=== PATIENT | female | born 1990 | race Two or more races ===

== ENCOUNTER 2017-04-13 18:21 | Emergency (ER) | payer MEDICAID ==
[~2017-04-13] VITALS: Ht 157.5 cm; Wt 46.7 kg
[~2017-04-13 18:21] MED LIST: ACET-1079; TRAM300T15
[2017-04-13 19:38] VITALS: BP 124/76
[2017-04-13] MEDS ORDERED: SODIUM CHLORIDE 0.9% 1,000 ML IV ONE (20:15)
[2017-04-13 20:54] LABS: Basophils # (auto) 0 uL; Basophils % (auto) 0.2 % (0.0-2.0); CONDITION Y; Eosinophils # (auto) 0.1 uL; Eosinophils % (auto) 1.2 % (0.0-7.0); Hematocrit 38.7 % (36.0-46.0); Hemoglobin 13.4 g/dL (12.2-16.2); Lymphocytes # (auto) 2.5 uL; Lymphocytes % (auto) 26.6 % (10.0-50.0); Mean Corpuscular Hemoglobin 31.5 pg (28.0-32.0); Mean Corpuscular Hgb Conc. 34.5 g/dL (32.0-36.0); Mean Corpuscular Volume 91.4 fL (80.0-100.0); Mean Platelet Volume 7.4 fL (7.4-10.4); Monocytes # (auto) 0.5 uL; Monocytes % (auto) 5.2 % (0.0-12.0); Neutrophils # (auto) 6.2 uL; Neutrophils % (auto) 66.8 % (37.0-80.0); Platelet Count (auto) 344 10^3/uL (140-450); Red Cell Distribution Width 13.1 % (11.6-16.0); White Blood Cell 9.3 10^3/uL (4.4-10.8)
[2017-04-13 21:05] LABS: Albumin 3.9 g/dL (3.4-5.0); BUN/Creatinine Ratio 14.5; Bilirubin, Total 0.6 mg/dL (0.2-1.0); Calcium 8.8 mg/dL (8.5-10.1); Potassium 3.2 mmol/L (3.5-5.1)
== END 2017-04-13 22:05 | disposition home or self-care (01) ==
LOC: ER 18:24
DX: O23.41 Unspecified infection of urinary tract in pregnancy, first trimester (principal); O99.281 Endocrine, nutritional and metabolic diseases complicating pregnancy, first trimester; E86.0 Dehydration; Z88.6 Allergy status to analgesic agent; Z88.8 Allergy status to other drugs, medicaments and biological substances; Z3A.00 Weeks of gestation of pregnancy not specified
CPT/HCPCS: 36415; 80053; 81025; 84702; 85025; 96360; 99284; J7030

== ENCOUNTER 2017-07-14 19:54 | Emergency (ER) | payer MEDICAID ==
[~2017-07-14] VITALS: Ht 157.5 cm; Wt 61.2 kg
[2017-07-14 20:47] LABS: Basophils # (auto) 0 uL; Basophils % (auto) 0.3 % (0.0-2.0); Eosinophils # (auto) 0.2 uL; Hematocrit 38.5 % (36.0-46.0); Lymphocytes # (auto) 2.6 uL; Lymphocytes % (auto) 28.4 % (10.0-50.0); Mean Corpuscular Hemoglobin 31.5 pg (28.0-32.0); Mean Corpuscular Hgb Conc. 33.8 g/dL (32.0-36.0); Mean Corpuscular Volume 92.9 fL (80.0-100.0); Monocytes # (auto) 0.6 uL; Monocytes % (auto) 6.4 % (0.0-12.0); Neutrophils # (auto) 5.7 uL; Neutrophils % (auto) 62.9 % (37.0-80.0); Platelet Count (auto) 292 10^3/uL (140-450); Red Blood Cells 4.15 10^6/uL (4.0-5.20); Red Cell Distribution Width 13.2 % (11.8-14.3); White Blood Cell 9.1 10^3/uL (4.4-10.8)
[2017-07-14 21:03] LABS: Potassium 3.8 mmol/L (3.5-5.1)
[2017-07-14 21:08] LABS: Albumin 3.6 g/dL (3.4-5.0); BUN/Creatinine Ratio 19.4; Calcium 8.5 mg/dL (8.5-10.1)
[2017-07-14 21:10] LABS: Bilirubin, Total 0.4 mg/dL (0.2-1.0); Total Protein 7.1 g/dL (6.4-8.2)
[2017-07-14 21:13] LABS: Urine Bacteria FEW /hpf (None Seen); Urine Blood Negative /uL (Negative); Urine WBC 1 /hpf (0 - 5)
[2017-07-14] MEDS ORDERED: cefTRIAXone SOD 1,000 MG VL IM ONE (22:45)
[2017-07-14] MEDS ORDERED: cefTRIAXone SOD 1,000 MG VL ONE (22:46)
[2017-07-14 23:30] VITALS: BP 127/64
== END 2017-07-14 23:32 | disposition home or self-care (01) ==
LOC: ER 19:54
DX: L03.115 Cellulitis of right lower limb (principal); N39.0 Urinary tract infection, site not specified; Z88.5 Allergy status to narcotic agent; Z88.6 Allergy status to analgesic agent
CPT/HCPCS: 36415; 80053; 81001; 85025; 96372; 99284; J0696; J7030

== ENCOUNTER 2017-10-31 12:11 | Emergency (ER) | payer MEDICAID ==
[~2017-10-31] VITALS: Ht 157.5 cm; Wt 59.0 kg
[2017-10-31] MEDS ORDERED: cefTRIAXone SOD 1,000 MG VL IM ONE (17:15)
[2017-10-31 17:30] VITALS: BP 119/82
== END 2017-10-31 17:42 | disposition home or self-care (01) ==
LOC: ER 12:11
DX: L03.115 Cellulitis of right lower limb (principal); Z88.6 Allergy status to analgesic agent
CPT/HCPCS: 73700; 96372; 99284; J0696

== ENCOUNTER 2018-01-11 19:17 | Emergency (ER) | payer MEDICAID ==
[~2018-01-11] VITALS: Ht 157.5 cm; Wt 60.3 kg
[2018-01-11 19:42] VITALS: BP 127/72
[2018-01-11 20:10] LABS: Basophils # (auto) 0 uL; Basophils % (auto) 0.4 % (0.0-2.0); Eosinophils # (auto) 0.1 uL; Hematocrit 39.2 % (36.0-46.0); Hemoglobin 13.4 g/dL (12.2-16.2); Lymphocytes # (auto) 2.5 uL; Lymphocytes % (auto) 24.9 % (10.0-50.0); Mean Corpuscular Hemoglobin 31.3 pg (28.0-32.0); Mean Corpuscular Hgb Conc. 34.3 g/dL (32.0-36.0); Mean Corpuscular Volume 91.3 fL (80.0-100.0); Monocytes # (auto) 0.7 uL; Monocytes % (auto) 6.8 % (0.0-12.0); Neutrophils # (auto) 6.6 uL; Neutrophils % (auto) 66.9 % (37.0-80.0); Nucleated Red Blood Cells % 0.2 %; Platelet Count (auto) 303 10^3/uL (140-450); White Blood Cell 9.9 10^3/uL (4.4-10.8)
[2018-01-11 20:22] LABS: Albumin 3.8 g/dL (3.4-5.0); BUN/Creatinine Ratio 8.9; Potassium 3.5 mmol/L (3.5-5.1)
[2018-01-11 20:26] LABS: Bilirubin, Total 0.7 mg/dL (0.2-1.0); Total Protein 7.7 g/dL (6.4-8.2)
[2018-01-12 03:28] LABS: Urine Bacteria FEW /hpf (None Seen); Urine Blood Negative /uL (Negative); Urine Specific Gravity 1.007 (1.001-1.035); Urine WBC <1 /hpf (0 - 5)
== END 2018-01-12 07:29 | disposition left against medical advice (07) ==
LOC: ER 19:17
DX: R10.9 Unspecified abdominal pain (principal); Z53.21 Procedure and treatment not carried out due to patient leaving prior to being seen by health care provider
CPT/HCPCS: 36415; 80053; 81001; 83690; 84702; 85025